=== PATIENT | female | born 2000 | race Caucasian/White ===

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

== ENCOUNTER 2022-06-04 14:36 | Inpatient (IN) ==
[2022-06-04] MEDS ORDERED: Buffered Lidocaine 1% SYRIN 1 ml INTRADERM ONE ×2 (15:26→16:27)
[2022-06-04] MEDS ORDERED: Lactated Ringers 1000 ml BAG 1,000 ML IV ONE (16:27)
[2022-06-04 16:38] LABS: Urine Benzodiazepine Screen None Detected (None Detect); Urine Cannabinoids Screen None Detected (None Detect); Urine Opiates Screen None Detected (None Detect)
[2022-06-04] MEDS ORDERED: Lactated Ringers 1000 ml BAG 1,000 ML IV SCH ×2 (17:00→21:00)
[2022-06-04 18:48] LABS: ABS Lymphocytes 1.5 10^3/ul (1.0-4.8); ABS Monocytes 1.3 10^3/ul (0-0.8); ABS Neutrophils 16.1 10^3/ul (1.5-7.7); Eosinophil % 0.2 %; Hematocrit 39 % (35-47); Hemoglobin 12.8 g/dL (12.0-16.0); Lymphocyte % 8.2 %; Mean Corpuscular HGB Conc 33 g/dL (31-36); Mean Corpuscular Hemoglobin 29 pg (27-31); Mean Corpuscular Volume 88 fL (80-97); Mean Platelet Volume 9.4 fL (7.4-10.4); Platelet Count 196 10^3/uL (150-450); Red Blood Count 4.39 10^6 /uL (3.70-4.87); Red Cell Distribution Width 13 % (10-15); White Blood Count 18.9 10^3/uL (3.5-10.8)
[2022-06-04] MEDS ORDERED: Methylergonovine 0.2 mg AMPULE 1 ml AMP ONE (19:55)
[2022-06-04] MEDS ORDERED: Methylergonovine 0.2 mg AMPULE 1 ml AMP IM ONE (20:19)
[2022-06-04] MEDS ORDERED: Glycerin ADULT 2.4 gm SUPP PR PRN (20:19)
[2022-06-04] MEDS ORDERED: Oxytocin in LR 20,000 MILLI.UNIT/1,000 ML BAG IV SCH (20:30)
[2022-06-04] MEDS ORDERED: Oxytocin 10 UNITS/ML 1 ML VIAL IV ONE (21:27)
[2022-06-04] MEDS: Witch Hazel PAD JAR TOPICAL PRN (22:51)
[2022-06-04] MEDS: Dibucaine 1% OINT 28.35 GM TUBE PR PRN (22:51)
[2022-06-05 06:49] LABS: Hematocrit 32 % (35-47); Hemoglobin 10.9 g/dL (12.0-16.0); Mean Corpuscular HGB Conc 34 g/dL (31-36); Mean Corpuscular Hemoglobin 30 pg (27-31); Mean Corpuscular Volume 89 fL (80-97); Mean Platelet Volume 9.2 fL (7.4-10.4); Platelet Count 196 10^3/uL (150-450); Red Blood Count 3.66 10^6 /uL (3.70-4.87); Red Cell Distribution Width 13 % (10-15); White Blood Count 19.3 10^3/uL (3.5-10.8)
[2022-06-05 07:49] LABS: ABS Lymphocytes 2.3 10^3/ul (1.0-4.8); ABS Monocytes 1.9 10^3/ul (0-0.8); Eosinophil % 0.1 %; Lymphocyte % 12.1 %
[2022-06-05] MEDS: Dibucaine 1% OINT 28.35 GM TUBE PR PRN (16:14)
[2022-06-06 06:10] LABS: Hematocrit 34 % (35-47); Hemoglobin 11.1 g/dL (12.0-16.0); Mean Corpuscular HGB Conc 33 g/dL (31-36); Mean Corpuscular Hemoglobin 29 pg (27-31); Mean Corpuscular Volume 89 fL (80-97); Mean Platelet Volume 8.8 fL (7.4-10.4); Platelet Count 214 10^3/uL (150-450); Red Blood Count 3.81 10^6 /uL (3.70-4.87); Red Cell Distribution Width 13 % (10-15); White Blood Count 16.9 10^3/uL (3.5-10.8)
[2022-06-06 08:39] VITALS: BP 90/54
[2022-06-06] MEDS: Dibucaine 1% OINT 28.35 GM TUBE PR PRN (11:53)
[2022-06-06] MEDS: Witch Hazel PAD JAR TOPICAL PRN (11:53)
== END 2022-06-06 12:59 | disposition home or self-care (01) | DRG 560 ==
LOC: MCHOBOUT 14:36 → MCHOB 16:12
PROVIDERS: ADMIT Midwife; ATTEND Midwife